=== PATIENT | female | born 1985 | race Two or more races ===

== ENCOUNTER 2017-06-05 15:44 | Emergency (ER) | payer MEDICAID ==
[~2017-06-05] VITALS: Ht 170.2 cm; Wt 54.4 kg
[2017-06-05] MEDS ORDERED: SEROQUEL50 MG ORAL (15:53)
--- NOTE | 2017-06-05 15:56 | Emergency Room Report ---
History of Present Illness General Chief Complaint: General Complaint Present Illness HPI 31 YO Female presents to the ED c/o running out of her medication -Seroquel that she takes for anxiety and sleep. pt. reports that she is on the streets and has not been able to sleep due to being out of Seroquel. pt. reports progressive exhaustion. Denies night sweats, significant changes in weight , or increase from her previous anxiety symptoms. Pt. denies drug use. Denies cp, Palpitations, rashes, fevers, chills, abdominal pain, N/V, LOC. pt. denies hallucinations, delusions, SI/HI. Allergies: Coded Allergies: CODEINE (Verified Allergy, Intermediate, Anaphylaxis, 06/05/17) Pt stated, "tongue swells up." Patient History Past Medical History: see triage record, psych hx - anxiety and insomnia Past Surgical History: none Pertinent Family History: none Now: No Immunizations: UTD Reviewed Nursing Documentation: PMH: Agreed, PSxH: Agreed Review of Systems All Other Systems: negative except mentioned in HPI Physical Exam Sp02 EP Interpretation: reviewed, normal General Appearance: no apparent distress, alert, GCS 15, non-toxic, other - somewhat discheveled. Head: normocephalic, atraumatic Eyes: bilateral eye normal inspection, bilateral eye PERRL ENT: hearing grossly normal, normal voice Neck: full range of motion Respiratory: lungs clear, normal breath sounds, speaking full sentences Cardiovascular #1: regular rate, rhythm, no edema Gastrointestinal: non tender, soft Musculoskeletal: back normal, gait/station normal, normal range of motion, non- tender Neurologic: alert, oriented x3, responsive, motor strength/tone normal, sensory intact, normal gait, speech normal Psychiatric: judgement/insight normal, memory normal, mood/affect normal, no suicidal/homicidal ideation, no delusions Skin: normal color, no rash, warm/dry, well hydrated Medical Decision Making PA Attestation Dr. Ballard is my supervising Physician whom patient management has been discussed with. Diagnostic Impression: Primary Impression: Medication refill ER Course 31 YO Female presents to the ED c/o running out of her medication -Seroquel that she takes for anxiety and sleep. pt. reports that she is on the streets and has not been able to sleep due to being out of Seroquel. pt. reports progressive exhaustion. Denies night sweats, significant changes in weight , or increase from her previous anxiety symptoms. Pt. denies drug use. Denies cp, Palpitations, rashes, fevers, chills, abdominal pain, N/V, LOC. pt. denies hallucinations, delusions, SI/HI. Ddx considered but are not limited to: drug seeking, OD, medication non- compliance, cardiac pathology, psychiatric disorder just to name a few. Vital signs: are WNL, pt. is afebrile, non-toxic in appearance. H&PE are most consistent with need for medication refill, and transitional housing resource information. ORDERS: none required at this time, the diagnosis is clinical ED INTERVENTIONS: -Seroquel PO - Pt. is given [facility] RESOURCE INFORMATION for medication management. pt. also given list of free/reduced cost health care clinics, and list of transitional housing resources. -Pt is also given ED Return Precautions. DISCHARGE: At this time pt. is stable for d/c to home. Will provide printed patient care instructions, and any necessary prescriptions. Care plan and follow up instructions have been discussed with the patient prior to discharge. Disposition: HOME, SELF-CARE Condition: Stable Scripts Quetiapine Fumarate (SEROQUEL) 50 Mg Tablet 50 MG ORAL TWICE A DAY, #15 TAB 0 Refills Prov: Andreia Arevalo 06/05/17 Patient Instructions: Medicine Refill at the Emergency Department, Medical Screening Exam Additional Instructions: Take medications as directed. Follow up with a Primary Care Provider in 3-5 days, even if your symptoms have resolved. --Please review list of primary care clinics, if you do not already have a primary care provider *!* Review provided list of free or reduced cost health clinics and [facility] for follow up *!* Also review list of Transitional Housing Resources. Return sooner to ED if new symptoms occur, or current symptoms become worse. Do not drink alcohol, drive, or operate heavy machinery while taking Seroquel as this may cause drowsiness. - Please note that this Emergency Department Report was dictated using [employer] repairer technology software, occasionally this can lead to erroneous entry secondary to interpretation by the dictation equipment. Andreia Arevalo Jun 05, 2017 15:56
[2017-06-05 16:00] VITALS: BP 114/73
[2017-06-05 16:25] VITALS: BP 114/77
== END 2017-06-05 16:25 | disposition home or self-care (01) ==
LOC: EDBD 15:44 → EMR 16:00
DX: Z76.0 Encounter for issue of repeat prescription (principal); F41.9 Anxiety disorder, unspecified; G47.00 Insomnia, unspecified; Z88.6 Allergy status to analgesic agent
CPT/HCPCS: 99283

== ENCOUNTER 2017-06-05 23:44 | Emergency (ER) | payer MEDICAID ==
[~2017-06-05] VITALS: Ht 170.2 cm; Wt 49.9 kg
[~2017-06-05 23:44] MED LIST: SEROQUEL50 MG ORAL
[2017-06-06 00:05] VITALS: BP 120/75
--- NOTE | 2017-06-07 06:54 | Emergency Room Report ---
History of Present Illness General Chief Complaint: General Complaint Source: Patient, EMS Present Illness HPI 31-year-old female presents ED for evaluation. Patient brought in by EMS. Patient states she is exhausted and needs a place to sleep. Patient is homeless. Patient was here earlier for medication refill and was to be discharged. Patient denies any pain. Denies any fevers or chills. Denies nausea or vomiting. No other aggravating relieving factors. Denies any other associated symptoms Allergies: Coded Allergies: CODEINE (Verified Allergy, Intermediate, Anaphylaxis, 06/05/17) Pt stated, "tongue swells up." Patient History Past Medical History: DM Past Surgical History: none Pertinent Family History: none Social History: Denies: smoking, alcohol use, drug use Last Menstrual Period: last month Now: No Immunizations: UTD Reviewed Nursing Documentation: PMH: Agreed, PSxH: Agreed Nursing Documentation-PMH Hx Cardiac Problems: No Hx Hypertension: No Hx Pacemaker: No Hx Asthma: No Hx COPD: No Hx Diabetes: Yes - DM Type 1 Hx Cancer: No Hx Dialysis: No Hx Neurological Problems: No Hx Cerebrovascular Accident: No Hx Seizures: No Review of Systems All Other Systems: negative except mentioned in HPI Physical Exam Vital Signs Date Time Temp Pulse Resp B/P (MAP) Pulse Ox O2 Delivery O2 Flow Rate FiO2 06/05/17 23:41 97.5 102 18 120/75 98 Room Air Sp02 EP Interpretation: reviewed, normal General Appearance: no apparent distress, alert, GCS 15, non-toxic Head: normocephalic, atraumatic Eyes: bilateral eye normal inspection, bilateral eye PERRL ENT: hearing grossly normal, normal pharynx, no angioedema, normal voice Neck: full range of motion, supple/symm/no masses Respiratory: chest non-tender, lungs clear, normal breath sounds, speaking full sentences Cardiovascular #1: regular rate, rhythm, no edema Cardiovascular #2: 2+ carotid (R), 2+ carotid (L), 2+ radial (R), 2+ radial (L) , 2+ dorsalis pedis (R), 2+ dorsalis pedis (L) Gastrointestinal: normal bowel sounds, non tender, soft, non-distended, no guarding, no rebound Rectal: deferred Genitourinary: normal inspection, no CVA tenderness Musculoskeletal: back normal, gait/station normal, normal range of motion, non- tender Neurologic: alert, oriented x3, responsive, motor strength/tone normal, sensory intact, speech normal Psychiatric: judgement/insight normal, memory normal, mood/affect normal, no suicidal/homicidal ideation Reflexes: 3+ bicep (R), 3+ bicep (L), 3+ tricep (R), 3+ tricep (L), 3+ knee (R) , 3+ knee (L) Skin: normal color, no rash, warm/dry, well hydrated Lymphatic: no adenopathy Medical Decision Making Diagnostic Impression: Primary Impression: Encounter for generalized patient complaints ER Course 31-year-old female presents ED complaining of exhaustion and weakness. Not sleeping. Homeless. Patient placed on stretcher. After initial history and physical patient is allowed to sleep Patient walks out of ED shortly after Last Vital Signs Date Time Temp Pulse Resp B/P (MAP) Pulse Ox O2 Delivery O2 Flow Rate FiO2 06/06/17 00:05 102 18 120/75 98 Room Air 06/06/17 00:05 97.5 Status: improved Disposition: ELOPED Condition: Stable Referrals: NOT CHOSEN [facility]ANCI/,REFERRING (PCP) VIKRAM DE LOS SANTOS M.D. Jun 07, 2017 06:54
== END 2017-06-06 00:05 | disposition left against medical advice (07) ==
LOC: EDBD 23:44 → EMR 23:59
DX: R53.83 Other fatigue (principal); E11.9 Type 2 diabetes mellitus without complications; Z88.6 Allergy status to analgesic agent; Z59.0 Homelessness
CPT/HCPCS: 99285

== ENCOUNTER 2017-06-06 01:55 | Emergency (ER) | payer MEDICAID ==
[~2017-06-06] VITALS: Ht 170.2 cm; Wt 49.9 kg
[2017-06-06 03:29] LABS: BASOPHILS % (AUTO) 1.3 % (0.0-2.0); EOSINOPHILS % (AUTO) 1.2 % (0.0-3.0); LYMPHOCYTES % (AUTO) 31.4 % (20.0-45.0); MEAN CORPUSCULAR HEMOGLOBIN 32.5 PG (27.0-31.0); MEAN CORPUSCULAR HGB CONC 33.9 G/DL (32.0-36.0); MEAN CORPUSCULAR VOLUME 96 FL (80-99); MEAN PLATELET VOLUME 7.8 FL (6.5-10.1); MONOCYTES % (AUTO) 7.5 % (1.0-10.0); NEUTROPHILS % (AUTO) 58.7 % (45.0-75.0); PLATELET COUNT 115 K/UL (150-450); RED BLOOD COUNT 4.05 M/UL (4.20-5.40); RED CELL DISTRIBUTION WIDTH 11.5 % (11.6-14.8); WHITE BLOOD COUNT 4.3 K/UL (4.8-10.8)
[2017-06-06 03:41] LABS: ANION GAP 9 mmol/L (5-15); CALCIUM 8.5 MG/DL (8.5-10.1); CARBON DIOXIDE 26 MMOL/L (21-32); CHLORIDE 105 MMOL/L (98-107); CREATININE 0.7 MG/DL (0.55-1.30); GLOMERULAR FILTRATION RATE > 60 mL/min (>60); POTASSIUM 3.4 MMOL/L (3.5-5.1); SODIUM 140 MMOL/L (136-145)
[2017-06-06 03:45] LABS: ALANINE AMINOTRANSFERASE 23 U/L (12-78); ALBUMIN/GLOBULIN RATIO 1.2 (1.0-2.7); ALCOHOL < 3 mg/dL; ASPARTATE AMINO TRANSFERASE 32 U/L (15-37); TOTAL PROTEIN 6.7 G/DL (6.4-8.2)
[2017-06-06 03:52] LABS: ACETAMINOPHEN < 2 MCG/ML (10-30)
--- NOTE | 2017-06-06 04:47 | Emergency Room Report ---
History of Present Illness General Chief Complaint: Behavioral Complaint Source: Patient Present Illness HPI 31-year-old female presents ED for evaluation. Patient brought in by [employer]. Patient states that she wants to hurt herself by overdosing. Patient is depressed by her situation. Patient is homeless. Patient was seen here earlier today; patient states she ate a place to sleep because she was exhausted. Patient was given a bed however patient did elope from the emergency room. Patient denies alcohol or drug use. Denies hearing voices. No other aggravating relieving factors. Denies any other associated symptoms Allergies: Coded Allergies: CODEINE (Verified Allergy, Intermediate, Anaphylaxis, 06/05/17) Pt stated, "tongue swells up." Patient History Past Medical History: DM Past Surgical History: none Pertinent Family History: none Social History: Denies: smoking, alcohol use, drug use Last Menstrual Period: last month Now: No Immunizations: UTD Reviewed Nursing Documentation: PMH: Agreed, PSxH: Agreed Nursing Documentation-PMH Hx Cardiac Problems: No Hx Hypertension: No Hx Pacemaker: No Hx Asthma: No Hx COPD: No Hx Diabetes: Yes - DM Type 1 Hx Cancer: No Hx Dialysis: No Hx Neurological Problems: No Hx Cerebrovascular Accident: No Hx Seizures: No Review of Systems All Other Systems: negative except mentioned in HPI Physical Exam Vital Signs Date Time Temp Pulse Resp B/P (MAP) Pulse Ox O2 Delivery O2 Flow Rate FiO2 06/06/17 02:20 98.1 94 18 115/80 98 Room Air Sp02 EP Interpretation: reviewed, normal General Appearance: no apparent distress, alert, GCS 15, non-toxic Head: normocephalic, atraumatic Eyes: bilateral eye normal inspection, bilateral eye PERRL ENT: hearing grossly normal, normal pharynx, no angioedema, normal voice Neck: full range of motion, supple/symm/no masses Respiratory: chest non-tender, lungs clear, normal breath sounds, speaking full sentences Cardiovascular #1: regular rate, rhythm, no edema Cardiovascular #2: 2+ carotid (R), 2+ carotid (L), 2+ radial (R), 2+ radial (L) , 2+ dorsalis pedis (R), 2+ dorsalis pedis (L) Gastrointestinal: normal bowel sounds, non tender, soft, non-distended, no guarding, no rebound Rectal: deferred Genitourinary: normal inspection, no CVA tenderness Musculoskeletal: back normal, gait/station normal, normal range of motion, non- tender Neurologic: alert, oriented x3, responsive, motor strength/tone normal, sensory intact, speech normal Psychiatric: depressed affect, anxious Reflexes: 3+ bicep (R), 3+ bicep (L), 3+ tricep (R), 3+ tricep (L), 3+ knee (R) , 3+ knee (L) Skin: normal color, no rash, warm/dry, well hydrated Lymphatic: no adenopathy Medical Decision Making Diagnostic Impression: Primary Impression: Behavioral disorder ER Course Hospital Course 31-year-old female presents to ED for suicidal ideation. wants to overdose on medications Differential diagnoses include: Major depressive disorder, unspecified psychosis , EtOH abuse, drug abuse Clinical course Patient placed on stretcher. On one to one observation. After initial history and physical I ordered labs, U. tox Labs-electrolytes normal, aspirin/Tylenol levels normal, EtOH level normal, U. tox +THC Patient was placed on 5150 hold by [employer] Patient is medically cleared and pending psychiatric evaluation. i. I feel this is a highly complex case requiring extensive working including EKG/Rhythm strip, Xray/CT/US, Blood/urine lab work, repeat exams while in ED, and administration of strong opiates/narcotics for pain control, admission to hospital or close patient follow up. Labs Test 06/06/17 03:20 White Blood Count 4.3 K/UL (4.8-10.8) Red Blood Count 4.05 M/UL (4.20-5.40) Hemoglobin 13.2 G/DL (12.0-16.0) Hematocrit 38.8 % (37.0-47.0) Mean Corpuscular Volume 96 FL (80-99) Mean Corpuscular Hemoglobin 32.5 PG (27.0-31.0) Mean Corpuscular Hemoglobin Concent 33.9 G/DL (32.0-36.0) Red Cell Distribution Width 11.5 % (11.6-14.8) Platelet Count 115 K/UL (150-450) Mean Platelet Volume 7.8 FL (6.5-10.1) Neutrophils (%) (Auto) 58.7 % (45.0-75.0) Lymphocytes (%) (Auto) 31.4 % (20.0-45.0) Monocytes (%) (Auto) 7.5 % (1.0-10.0) Eosinophils (%) (Auto) 1.2 % (0.0-3.0) Basophils (%) (Auto) 1.3 % (0.0-2.0) Urine HCG, Qualitative Negative Sodium Level 140 MMOL/L (136-145) Potassium Level 3.4 MMOL/L (3.5-5.1) Chloride Level 105 MMOL/L (98-107) Carbon Dioxide Level 26 MMOL/L (21-32) Anion Gap 9 mmol/L (5-15) Blood Urea Nitrogen 8 mg/dL (7-18) Creatinine 0.7 MG/DL (0.55-1.30) Estimat Glomerular Filtration Rate > 60 mL/min (>60) Glucose Level 114 MG/DL (74-106) Calcium Level 8.5 MG/DL (8.5-10.1) Total Bilirubin 0.4 MG/DL (0.2-1.0) Aspartate Amino Transf (AST/SGOT) 32 U/L (15-37) Alanine Aminotransferase (ALT/SGPT) 23 U/L (12-78) Alkaline Phosphatase 55 U/L (46-116) Total Protein 6.7 G/DL (6.4-8.2) Albumin 3.6 G/DL (3.4-5.0) Globulin 3.1 g/dL Albumin/Globulin Ratio 1.2 (1.0-2.7) Salicylates Level 1.7 ug/mL (2.8-20) Urine Opiates Screen Negative (NEGATIVE) Acetaminophen Level < 2 MCG/ML (10-30) Urine Barbiturates Screen Negative (NEGATIVE) Phencyclidine (PCP) Screen Negative (NEGATIVE) Urine Amphetamines Screen Negative (NEGATIVE) Urine Benzodiazepines Screen Negative (NEGATIVE) Urine Cocaine Screen Negative (NEGATIVE) Urine Marijuana (THC) Screen Positive (NEGATIVE) Serum Alcohol < 3 mg/dL Last Vital Signs Date Time Temp Pulse Resp B/P (MAP) Pulse Ox O2 Delivery O2 Flow Rate FiO2 06/06/17 02:20 98.1 94 18 115/80 98 Room Air Status: improved Disposition: XFER TO PSYCH HOSP/UNIT Condition: Serious Referrals: NOT CHOSEN [facility]/,REFERRING (PCP) VIKRAM DE LOS SANTOS M.D. Jun 06, 2017 04:47
[2017-06-06] MEDS ORDERED: LORazepam 1mg tab ORAL ONE (05:15)
[2017-06-06 06:00] VITALS: BP 120/82
--- NOTE | 2017-06-06 10:13 | Consultation ---
History of Present Illness General Chief Complaint: Behavioral Complaint Present Illness HPI 31 yo female with crystal meth use who came to er three time yesterday for different reasons/ the pt stated that she came and stated that she was suicidal "since I don't want to live in the streets, it's too cold and dangerous. the pt is not endorsing si. inititally stated that she wants to go back to [place] stated then she stated that bus token would help her. the pt has severe meth abuse disorder. the pt has poor insight. no si/hi Allergies: Coded Allergies: CODEINE (Verified Allergy, Intermediate, Anaphylaxis, 06/05/17) Pt stated, "tongue swells up." Medication History Scheduled Quetiapine Fumarate (Seroquel), 50 MG ORAL TWICE A DAY Patient History History Provided By: Patient, Medical Record, PMD Healthcare decision maker Resuscitation status Advanced Directive on File Past Medical/Surgical History Past Medical/Surgical History: (1) Encounter for generalized patient complaints Review of Systems Psychiatric: Reports: prior hx, anxiety, depressed feelings Physical Exam General Appearance: no apparent distress, alert Neurologic: alert, oriented x 3, responsive, depressed affect Last 24 Hour Vital Signs Date Time Temp Pulse Resp B/P (MAP) Pulse Ox O2 Delivery O2 Flow Rate FiO2 06/06/17 06:00 97.8 92 14 120/82 97 Room Air 06/06/17 02:20 98.1 94 18 115/80 98 Room Air Intake and Output 06/06/17 06/07/17 19:00 07:00 Intake Total 120 ml Balance 120 ml Intake Oral 120 ml # Voids 1 Laboratory Tests Test 06/06/17 03:20 White Blood Count 4.3 K/UL (4.8-10.8) L Red Blood Count 4.05 M/UL (4.20-5.40) L Hemoglobin 13.2 G/DL (12.0-16.0) Hematocrit 38.8 % (37.0-47.0) Mean Corpuscular Volume 96 FL (80-99) Mean Corpuscular Hemoglobin 32.5 PG (27.0-31.0) H Mean Corpuscular Hemoglobin Concent 33.9 G/DL (32.0-36.0) Red Cell Distribution Width 11.5 % (11.6-14.8) L Platelet Count 115 K/UL (150-450) L Mean Platelet Volume 7.8 FL (6.5-10.1) Neutrophils (%) (Auto) 58.7 % (45.0-75.0) Lymphocytes (%) (Auto) 31.4 % (20.0-45.0) Monocytes (%) (Auto) 7.5 % (1.0-10.0) Eosinophils (%) (Auto) 1.2 % (0.0-3.0) Basophils (%) (Auto) 1.3 % (0.0-2.0) Urine HCG, Qualitative Negative Sodium Level 140 MMOL/L (136-145) Potassium Level 3.4 MMOL/L (3.5-5.1) L Chloride Level 105 MMOL/L (98-107) Carbon Dioxide Level 26 MMOL/L (21-32) Anion Gap 9 mmol/L (5-15) Blood Urea Nitrogen 8 mg/dL (7-18) Creatinine 0.7 MG/DL (0.55-1.30) Estimat Glomerular Filtration Rate > 60 mL/min (>60) Glucose Level 114 MG/DL (74-106) H Calcium Level 8.5 MG/DL (8.5-10.1) Total Bilirubin 0.4 MG/DL (0.2-1.0) Aspartate Amino Transf (AST/SGOT) 32 U/L (15-37) Alanine Aminotransferase (ALT/SGPT) 23 U/L (12-78) Alkaline Phosphatase 55 U/L (46-116) Total Protein 6.7 G/DL (6.4-8.2) Albumin 3.6 G/DL (3.4-5.0) Globulin 3.1 g/dL Albumin/Globulin Ratio 1.2 (1.0-2.7) Salicylates Level 1.7 ug/mL (2.8-20) L Urine Opiates Screen Negative (NEGATIVE) Acetaminophen Level < 2 MCG/ML (10-30) L Urine Barbiturates Screen Negative (NEGATIVE) Phencyclidine (PCP) Screen Negative (NEGATIVE) Urine Amphetamines Screen Negative (NEGATIVE) Urine Benzodiazepines Screen Negative (NEGATIVE) Urine Cocaine Screen Negative (NEGATIVE) Urine Marijuana (THC) Screen Positive (NEGATIVE) H Serum Alcohol < 3 mg/dL Height (Feet): 5 Height (Inches): 7.00 Weight (Pounds): 110 Assessment/Plan Status: stable Assessment/Plan meth use not a 5150 not meet the criteria for iloc dc 5150 Rishabh Sharpe M.D. Jun 06, 2017 10:13
[2017-06-06 10:40] VITALS: BP 122/82
[2017-06-06 11:11] VITALS: BP 122/82
== END 2017-06-06 11:23 ==
LOC: EMR 02:38
DX: F91.9 Conduct disorder, unspecified (principal); E10.9 Type 1 diabetes mellitus without complications; Z88.6 Allergy status to analgesic agent; Z59.0 Homelessness
CPT/HCPCS: 36415; 80053; 80307; 80329; 81025; 85025; 99285

== ENCOUNTER 2019-03-20 09:43 | Outpatient (CLI) | payer OTHER ==
--- NOTE | 2019-03-20 12:06 | Diagnostic Imaging Report ---
Indications: Altered mental status Technique: Spiral acquisitions obtained through the brain. Angled axial and coronal 5 x 5 mm slices were reconstructed. Total dose length product 1309.23 mGycm. CTDI vol(s) 70.38 mGy. Dose reduction achieved using automated exposure control Comparison: None. Findings: No acute intracranial hemorrhage or edema, mass effect, nor midline shift. Normal raza-white differentiation. Intact calvarium. Impression: Negative The CT scanner at [facility] is accredited by the [employer] and the scans are performed using protocols designed to limit radiation exposure to as low as reasonably achievable to attain images of sufficient resolution adequate for diagnostic evaluation.
== END 2019-03-20 11:43 | disposition home or self-care (01) ==
LOC: CAT 09:43
DX: R41.82 Altered mental status, unspecified (principal)
CPT/HCPCS: 70450

== ENCOUNTER 2020-06-24 17:39 | Emergency (ER) | payer OTHER ==
[~2020-06-24] VITALS: Ht 170.2 cm; Wt 68.0 kg
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
--- NOTE | 2020-06-24 18:50 | NUR ---
ED Nurse Note: Patient states she wants to hurt herself by overdose. Patient states she still hears voice. Vanna Boswell notified and will reassess her. concaver notified. Increased observation. Suicidal precaution initiated.
[2020-06-24 18:51] LABS: APPEARANCE,URINE CLEAR; BASOPHILS % (AUTO) 1.3 % (0.0-2.0); BILIRUBIN, URINE NEGATIVE (NEGATIVE); COLOR,URINE PALE YELLOW; GLUCOSE, URINE (UA) NEGATIVE (NEGATIVE); HEMATOCRIT 36.3 % (37.0-47.0); HEMOGLOBIN 12.4 G/DL (12.0-16.0); KETONES,URINE NEGATIVE (NEGATIVE); LEUKOCYTE ESTERASE ,URINE NEGATIVE (NEGATIVE); LYMPHOCYTES % (AUTO) 34.6 % (20.0-45.0); MEAN CORPUSCULAR VOLUME 94 FL (80-99); MONOCYTES % (AUTO) 6.6 % (1.0-10.0); NEUTROPHILS % (AUTO) 54.5 % (45.0-75.0); NITRITE,URINE NEGATIVE (NEGATIVE); PH,URINE 5 (4.5-8.0); PLATELET COUNT 156 K/UL (150-450); PROTEIN,URINE NEGATIVE (NEGATIVE); RED BLOOD COUNT 3.86 M/UL (4.20-5.40); UROBILINOGEN,URINE NORMAL MG/DL (0.0-1.0); WHITE BLOOD COUNT 4.1 K/UL (4.8-10.8)
[2020-06-24 18:57] VITALS: BP 103/61
--- NOTE | 2020-06-24 18:58 | NUR ---
ED Nurse Note: Room safety check performed. Patient is calm and able make a verbal contract that she will not hurt herself and remain safe at this time. Increased observation.
[2020-06-24 19:00] LABS: ANION GAP 9 mmol/L (5-15); BLOOD UREA NITROGEN 8 mg/dL (7-18); CALCIUM 7.8 MG/DL (8.5-10.1); CARBON DIOXIDE 29 MMOL/L (21-32); CHLORIDE 103 MMOL/L (98-107); CREATININE 0.8 MG/DL (0.55-1.30); POTASSIUM 3.1 MMOL/L (3.5-5.1); SODIUM 140 MMOL/L (136-145)
[2020-06-24 19:02] LABS: AMMONIA 26 umol/L (11-32)
--- NOTE | 2020-06-24 19:10 | NUR ---
ED Nurse Note: Report given to ALDO Friedman. Patient found sleeping in room.
--- NOTE | 2020-06-24 19:12 | NUR ---
ED Nurse Note: pt resting in bed, VSS no ss of distress noted. will continue to monitor.
[2020-06-24 19:13] LABS: ALANINE AMINOTRANSFERASE 37 U/L (12-78); ALBUMIN 3.6 G/DL (3.4-5.0); ALKALINE PHOSPHATASE 64 U/L (46-116); ASPARTATE AMINO TRANSFERASE 41 U/L (15-37); BILIRUBIN,TOTAL 0.3 MG/DL (0.2-1.0)
[2020-06-24 20:10] VITALS: BP 116/72
--- NOTE | 2020-06-24 20:45 | NUR ---
ED Nurse Note: all medications administered, pt tolerated well no ss of distress noted. will continue to monitor.
--- NOTE | 2020-06-24 21:20 | NUR ---
ED Nurse Note: pt resting in bed, vss no ss of distress noted. will continue to monitor.
[2020-06-24 22:15] VITALS: BP 112/65
--- NOTE | 2020-06-24 23:20 | NUR ---
ED Nurse Note: pt resting in bed, vss no ss of distress noted will continue to monitor.
[2020-06-25 00:05] VITALS: BP 115/71
--- NOTE | 2020-06-25 01:38 | NUR ---
ED Nurse Note: pt resting in bed, vss no ss of distress noted. will continue to monitor.
[2020-06-25 02:45] VITALS: BP 109/71
--- NOTE | 2020-06-25 03:10 | NUR ---
ED Nurse Note: PT SLEEPING IN BED, NO SS OF DISTRESS NOTED. WILL CONTINUE TO MONITOR.
[2020-06-25 04:12] VITALS: BP 110/68
--- NOTE | 2020-06-25 05:12 | NUR ---
ED Nurse Note: PT SLEEPING IN BED, NO SS OF DISTRESS NOTED. WILL CONTINUE TO MONITOR.
--- NOTE | 2020-06-25 05:43 | NUR ---
ED Nurse Note: PT WALKED TO RESTROOM AND BACK TO ROOM, AMBULATES WITH STEADY GAIT. NO SS OF DISTRESS NOTED.
[2020-06-25 06:15] VITALS: BP 113/65
--- NOTE | 2020-06-25 06:32 | NUR ---
HAND-OFF: Report given to ALDO Carreon.
[2020-06-25 09:43] VITALS: BP 102/65
--- NOTE | 2020-06-25 09:57 | NUR ---
ED Nurse Note: REPORT GIVEN TO ALDO GRANT
[2020-06-26 10:30] VITALS: BP 114/72
--- NOTE | 2020-06-27 13:00 | Cardiology Report ---
APPROVED REPORT EKG Measurement Heart [id number] <Conclusion> Normal sinus rhythm Prolonged QT Abnormal ECG
== END 2020-06-26 10:30 ==
LOC: EDBD 17:39 → EMR 19:00
DX: F15.10 Other stimulant abuse, uncomplicated (principal); F13.10 Sedative, hypnotic or anxiolytic abuse, uncomplicated; F10.129 Alcohol abuse with intoxication, unspecified; K74.60 Unspecified cirrhosis of liver; E87.6 Hypokalemia; Y90.6 Blood alcohol level of 120-199 mg/100 ml; E10.9 Type 1 diabetes mellitus without complications; Z88.5 Allergy status to narcotic agent
CPT/HCPCS: 36415; 80053; 80307; 81003; 81025; 82140; 85025; 93005; G0480; G0481; U0002; Z7502; 99284; J8499